=== PATIENT | female | born 1990 ===

== ENCOUNTER 2021-11-20 06:32 | Outpatient (REF) | payer OTHER, SELFPAY ==
--- NOTE | ~2021-11-20 | XR_ITS ---
EXAMINATION: XR SHOULDER, LEFT CLINICAL INFORMATION: Left shoulder pain. COMPARISON: None TECHNIQUE: Three views of the left shoulder. FINDINGS: Thin curvilinear lucency in the left glenohumeral joint space. The joint space is otherwise unremarkable. The left acromioclavicular joint is intact. The visualized left ribs are intact. The soft tissues are unremarkable. XR/XR shoulder LT min 2V IMPRESSION: Curvilinear lucency in the left glenohumeral joint space is nonspecific. This could be baseline for the patient however, if there is concern for injury, MRI should be considered.
== END 2021-11-20 06:33 | disposition home or self-care (01) ==
LOC: HO.HOSX 06:32
PROVIDERS: Visit Provider Physician Assistant
DX: M25.512 Pain in left shoulder (principal); M24.812 Other specific joint derangements of left shoulder, not elsewhere classified
CPT/HCPCS: 73030